=== PATIENT | female | born 1995 | race Caucasian/White ===

== ENCOUNTER 2024-01-17 05:50 | Inpatient (IN) | payer SELFPAY ==
[2024-01-17] VITALS (18 sets, daily range): BP systolic 89–128; BP diastolic 50–83; PULSE 57–86; TEMP 98.1–98.8
[~2024-01-17] VITALS: Ht 142.2 cm; Wt 72.7 kg
[~2024-01-17 05:50] MED LIST: LR 1,000 ML IV SCH
--- NOTE | 2024-01-17 06:15 | NUR ---
[address] PEREZ HERE FOR SCHEDULED . PT AMBULATORY TO UNIT, CHANGES INTO GOWN. HEART MONITOR HOOKED UP. PT DENIES CTXS, LOF, AND VAGINAL BLEEDING. PT CONFIRMS MOVEMENT
[2024-01-17] MEDS ORDERED: PRENATAL TABLET PO (06:34)
[2024-01-17 07:04] LABS: BASO # 0.1 K/mm3 (0.0-0.2); BASO % 0.4 % (0.0-2.0); EOS # 0.3 K/mm3 (0.0-0.7); EOS % 2.5 % (0.0-4.0); GRAN # 8.8 K/mm3 (1.4-6.5); GRAN % 68.6 % (42.2-75.2); HEMOGLOBIN 11.5 g/dl (12.5-16.0); LYMPH # 2.7 K/mm3 (1.2-3.4); LYMPH % 21.3 % (20.0-51.0); MEAN CELL VOLUME 84 fl (80.0-100.0); MEAN CORPUSCULAR HEMOGLOBIN 29 pg (27-31); MEAN CORPUSCULAR HGB CONC 34 g/dl (33.0-37.0); MEAN PLATELET VOLUME 11.4 fl (7.4-10.4); MONO # 0.8 K/mm3 (0.1-0.6); MONO % 6.5 % (1.7-9.3); PLATELET COUNT 254 K/mm3 (130-400); RED BLOOD COUNT 4.02 M/mm3 (4.10-5.30); REDCELL DISTRIBUTION WIDTH-CV 13.2 % (11.5-14.5)
[2024-01-17 07:06] LABS: HEMATOCRIT 33.8 % (37.0-47.0)
[2024-01-17] MEDS ORDERED: Phenylephrine 10 MG/ML VIAL ONE (07:12)
[2024-01-17] MEDS ORDERED: Ketorolac 60 MG/2 ML VIAL IM ONE (07:12)
[2024-01-17] MEDS ORDERED: Ondansetron 4 MG/2 ML VIAL ONE (07:13)
[2024-01-17] MEDS ORDERED: Oxytocin 10 UNITS/ML VIAL ONE (07:13)
[2024-01-17] MEDS ORDERED: dexAMETHasone 10 MG/ML VIAL ONE (07:13)
[2024-01-17] MEDS ORDERED: Ketorolac 30 MG/ML VIAL ONE (07:13)
[2024-01-17] MEDS ORDERED: NS 10 ML IV ONE ×2 (07:13→07:15)
[2024-01-17] MEDS ORDERED: Meperidine 50 MG/ML 1 ML VIAL ONE (07:18)
--- NOTE | 2024-01-17 07:30 | NUR ---
PT. AMBULATES BACK TO THE OR. SENIOR NET ENGINEER #[id number] BEING USED DURING SURGERY. PT SITS ON EDGE OF OPERATING TABLE FOR SPINAL PLACEMENT BY YESSI DAY. PT LAID BACK, COTTON INSERTED, ABDOMEN PREPPED. 0746: AROM OF CLEAR FLUID PER DR. PEREZ 0747: DELIVERY OF VIABLE FEMALE INFANT 0748: DELIVERY OF INTACT PLACENTA
[2024-01-17] MEDS ORDERED: LR 1,000 ML IV ONE (07:51)
[2024-01-17] MEDS ORDERED: Magnes Hydrox (MOM) 80 MG/ML 30 ML CUP PO PRN (08:30)
[2024-01-17] MEDS ORDERED: Loratadine 10 MG TAB PO PRN (08:30)
--- NOTE | 2024-01-17 08:30 | NUR ---
PT TRANSFERRED TO PACU IN STABLE CONDITION. CARAMEL CANDY MAKER HELPER [id number] BEING USED TO COMMUNICATE WITH PT
[2024-01-17] MEDS ORDERED: LR 1,000 ML IV PRN (08:45)
[2024-01-17] MEDS ORDERED: Acetaminophen 500 MG TAB PO SCH (08:45)
[2024-01-17] MEDS ORDERED: Measles/Mumps/Rubella Virus Vaccine Live w Diluent 0.5 ML VIAL SQ SCH (08:45)
[2024-01-17] MEDS ORDERED: Ondansetron 4 MG/2 ML VIAL IV PRN (08:45)
[2024-01-17] MEDS ORDERED: Tdap Vaccine 0.5 ML SYRINGE IM SCH (08:45)
[2024-01-17] MEDS ORDERED: Morphine 4 MG/ML VIAL IV PRN (08:45)
[2024-01-17] MEDS ORDERED: oxyCODONE 5 MG TAB PO PRN (08:45)
[2024-01-17] MEDS ORDERED: Naloxone 0.4 MG/ML VIAL IV PRN (08:45)
[2024-01-17] MEDS ORDERED: Prenatal Vitamins/Iron/FA TAB PO SCH (09:00)
[2024-01-17] MEDS ORDERED: Ibuprofen 600 MG TAB PO SCH (14:24)
--- NOTE | 2024-01-17 15:45 | NUR ---
THIS RN ASSUMES CARE OF PT AT THIS TIME FROM AMY Jara RN.
--- NOTE | 2024-01-17 16:27 | NUR ---
CALL TO RT TO REQUEST INCENTIVE SPIROMETRY, RT EN ROUTE AT THIS TIME WITH DEVICE.
[2024-01-17] MEDS ORDERED: Sennosides/Docusate 8.6-50 MG TAB PO SCH (17:00)
[2024-01-17] MEDS ORDERED: traZODone 50 MG TAB PO PRN (21:00)
[2024-01-18 05:00] VITALS: BP 105/62; PULSE 75; TEMP 98.6
[2024-01-18 06:34] LABS: HEMOGLOBIN 10.2 g/dl (12.5-16.0)
[2024-01-18 06:36] LABS: HEMATOCRIT 29.8 % (37.0-47.0)
[2024-01-18 07:10] VITALS: BP 76/55; PULSE 83; TEMP 98.2
[2024-01-18 07:15] VITALS: BP 85/63
--- NOTE | 2024-01-18 07:20 | NUR ---
THIS RN AND STUDENT IN PT ROOM USING [facility] CUSTOMER SERVICES COORDINATOR "JESSICA" [id number]. DISCUSSED CURRENT PLAN OF CARE, PT REQUESTING TO DISCHARGE WHEN ABLE TO. PT SITTING UP AT EDGE OF BED, BLOOD PRESSURE ON RIGHT ARM LOW AT 75/55, HEART RATE 83, TEMPERATURE 98.2. PT REPORTS NOT FEELING DISSY, CONFUSION, OR NAUSEA. BLOOD PRESSURE ON LEFT ARM 85/63. WILL TAKE BLOOD PRESSURE AGAIN IN 30 MINUTES AND REASSESS PT. PT LOCHIA SCANT, FUNDUS FIRM AT UMBILICUS, NO CLOTS PASSED, PT DENIES PAIN AT THIS TIME, PT AND PT SPOUSE DO NOT HAVE ANY CONCERNS OR QUESTIONS AT THIS TIME. PT VERBALLY UNDERSTANDING THAT THIS RN AND STUDENT WILL BE IN PT ROOM AROUND [phone] TO REASSESS. PT AWAKE AND ALERT X3, SPOUSE SUPPORTIVE AT BEDSIDE.
--- NOTE | 2024-01-18 10:02 | NUR ---
Initial visit; Nurse acted as enterpreter for Compression Molding Machine Setter and family. Compression Molding Machine Setter offered Congratulations and God's blessings for the of their daughter. They smiled and were pleased to announce their daughter's name to Compression Molding Machine Setter and thanked her for visiting them and welcoming them.
--- NOTE | 2024-01-18 15:15 | NUR ---
PT VERBALLY UNDERSTANDING OF DISCHARGE INFORMATION, PT VS STABLE, PT DENIES HAVING ANY QUESTIONS. INFANT CHECKED SAFELY IN CAR SEAT CARRIER. PT AMBULATORY OFF UNIT WITH SPOUSE AND IN CAR SEAT CARRIER.
== END 2024-01-18 15:15 | disposition home or self-care (01) | DRG 788 ==
LOC: OB 05:50
PROVIDERS: ADMIT Obstetrics & Gynecology
PROC: 10D00Z1 Extraction of Products of Conception, Low, Open Approach (ICD-10-PCS; principal; 2024-01-17)
DX: O34.211 Maternal care for low transverse scar from previous cesarean delivery (principal); Z3A.39 39 weeks gestation of pregnancy; Z37.0 Single live birth; O99.214 Obesity complicating childbirth
CPT/HCPCS: A9284; J0690; J1100; J1885; J2175; J2371; J2405; J2590; J7120